=== PATIENT | male | born 1945 | race Two or more races ===

== ENCOUNTER 2021-12-11 11:40 | Emergency (ER) | payer SELFPAY ==
[~2021-12-11] VITALS: Ht 172.7 cm; Wt 67.0 kg
[2021-12-11] MEDS ORDERED: IBUPROFEN 600MG TABLET PO ONE (12:30)
[2021-12-11 12:35] VITALS: BP 138/86
[2021-12-11] MEDS ORDERED: METH-774 MT (13:50)
[2021-12-11] MEDS ORDERED: IBUP-2029 MT (13:50)
== END 2021-12-11 14:12 | disposition home or self-care (01) ==
LOC: ER 11:40
DX: S09.8XXA Other specified injuries of head, initial encounter (principal); M62.838 Other muscle spasm; I25.2 Old myocardial infarction; J44.9 Chronic obstructive pulmonary disease, unspecified; V43.62XA Car passenger injured in collision with other type car in traffic accident, initial encounter; Y93.89 Activity, other specified; Y92.410 Unspecified street and highway as the place of occurrence of the external cause; Z85.51 Personal history of malignant neoplasm of bladder; Z87.891 Personal history of nicotine dependence
CPT/HCPCS: 99284